=== PATIENT | male | born 1955 | race Caucasian/White ===

== ENCOUNTER 2024-11-04 05:17 | Emergency (ER) | payer OTHER, SELFPAY ==
[2024-11-04 05:19] VITALS: BP 128/89
--- NOTE | 2024-11-04 07:07 | ED.GENMED ---
History of Present Illness
General
Chief Complaint: Back Pain
Source: patient
Exam Limitations: none
Time Seen by Provider: 11/04/24 06:58
History of Present Illness
History of Present Illness:
69yoM with a history of hypertension, hyperlipidemia, and obesity presenting with his for evaluation of back pain. Patient was doing some bathroom repairs in his home 4 days ago and was doing heavy lifting. He started to experience pain in
his left lower back the following morning. He described pain that radiates down into his buttock and down the back of his left leg. Pain is worse with weight bearing. He has been taking Tylenol without relief. He denies any fevers, abdominal
pain, paresthesias, bowel/bladder issues, or incontinence. No prior history of malignancy or back surgeries.
Phy Exam
General Physical Exam
General Presentation: well appearing and no apparent distress
General Skin: warm and dry
General Habitus: normal
General Mental: alert
ENT Exam
ENT Exam: normocephalic
Cardiovascular Exam
Cardiovascular Exam: normal peripheral pulses (2+ PT pulses bilaterally)
Pulmonary Exam
Pulmonary Exam: no respiratory distress
Neurological Exam
Neurological Exam: alert and other (5/5 strength in bilateral lower extremities and sensation intact)
Sukumar Coma Scale
Eye Opening: Spontaneous
Verbal Response: Oriented
Motor Response: Obeys Commands
GCS Total Score: 15
Musculoskeletal Exam
Musculoskeletal Exam: other (No tenderness to palpation of lumbar/buttock region. Pain elicited with movement of leg. Mild tenderness in L calf without skin changes or pitting edema. )
Skin Exam
Skin Exam: normal color and warm/dry
Psychiatric Exam
Psychiatric Exam: normal mood/affect
Course
Orders/Labs/Results
Orders:
Orders
11/04/24 07:07
Ketorolac [Toradol] 30 mg IM NOW STA
CR Lumbar Spine Comp Min 4 Vw* Urgent
Comment:
Reason For Exam: low back pain
Venous Doppler Lwr Ext Left [US Periph Venous LOWER Ext LT] Urgent
Comment:
Reason For Exam: L calf pain
Vital Signs
Initial and Last Documented VS:
Initial Vital Signs
Temp Pulse Resp BP Pulse Ox
98.2 F 84 16 128/89 98
11/04/24 05:19 11/04/24 05:19 11/04/24 05:19 11/04/24 05:19 11/04/24 05:19
Last Documented Vital Signs
Temp Pulse Resp BP Pulse Ox
98.2 F 94 18 136/88 97
11/04/24 05:19 11/04/24 08:37 11/04/24 08:37 11/04/24 08:37 11/04/24 08:37
MDM/Problems Addressed
Differential Diagnosis Includes:
69yoM here with L back pain radiating down to buttock/back of L leg x 3 days. Started after heavy lifting. No red flags in history including no saddle anesthesia, incontinence, fevers. VSS. Lower extremities are neurovascularly intact. Differential
diagnosis includes: sciatica, lumbar radiculopathy, less likely DVT
Initial ED plan: Check lumbar spine x-rays and venous duplex. IM Toradol for pain.
*Pulse Oximetry
SaO2: 98
Oxygen Mode of Delivery: Room air
Patient hypoxic: no (98%)
*Critical Care Note
Total Time (30-74mins, 75-104mins- exclusive of procedures): Not Applicable
Update Note
Update Note:
Venous duplex negative for DVT. X-rays show degenerative changes without fracture per my interpretation. Presentation consistent with sciatica. He was started on a course of prednisone and prescription also provided for gabapentin QHS. Supportive
care reviewed. He has an appt with his PCP scheduled in 5 days so will have close f/u. Patient in agreement with plan and was discharged in stable condition.
ED Attending Note
-
Portions of this chart may have been created with voice recognition software.� Occasional wrong word or��sound alike� substitutions may have occurred due to the inherent limitations of voice recognition software.
Discharge Plan
Departure
Patient Disposition: Home (Routine Discharge)
Date of Disposition: 11/04/24
Time of Disposition: 09:18
Patient with high blood pressure during this ER visit?: No
Discharge Problem:
Sciatica of left side
Instructions: Sciatica (DC)
Prescriptions:
New
prednisone 50 mg tablet
50 mg PO DAILY Qty: 5 0RF
gabapentin 100 mg capsule
100 mg PO HS Qty: 7 0RF
No Action
lisinopril-hydrochlorothiazide 20-12.5 mg Tablet
1 tab PO DAILY
amlodipine 5 mg Tablet
5 mg PO DAILY
tamsulosin 0.4 mg Capsule
0.4 mg PO DAILY
aspirin 81 mg Tablet
81 mg PO DAILY
finasteride 5 mg Tablet
5 mg PO DAILY
rosuvastatin 20 mg Tablet
20 mg PO DAILY
Referrals:
Bernard Morse MD [Family Provider]
Activity Restrictions/Additional Instructions:
Take prednisone and gabapentin as prescribed. Use lidocaine patches daily (12 hours on, 12 hours off). You may continue to use Tylenol as needed.
Please follow-up with your family doctor on Tuesday as previously scheduled. Return to the ER with any new or worsening symptoms.
Interventions
Interventions:
*Risk Screen - Suicide Last Done: 11/04/24 05:19
*General Assessment Last Done: 11/04/24 05:19
*Neglect/Abuse Screening Last Done: 11/04/24 05:19
*ED- Fall Risk Assessment Last Done: 11/04/24 08:37
*ED COVID-19 Vaccine History Last Done: 11/04/24 08:37
*Nursing Disposition Last Done: 11/04/24 10:12
ED-Musculoskeletal Assessment Last Done: 11/04/24 08:37
Discharge Date and Time
Discharge Date/Time: 11/04/24 10:13
Print Language: PERSIAN
[2024-11-04] MEDS: TORADOL 30 MG IM (08:32)
[2024-11-04 08:36] VITALS: BMI 32.5
[2024-11-04 08:37] VITALS: BP 136/88
== END 2024-11-04 10:13 | disposition home or self-care (01) ==
LOC: EMR 05:17
PROVIDERS: EMERGENCY PHYSICIAN Emergency Medicine; FAMILY PHYSICIAN Internal Medicine
DX: M54.42 Lumbago with sciatica, left side (principal); I10 Essential (primary) hypertension; E78.5 Hyperlipidemia, unspecified
CPT/HCPCS: 96372; 99284; 72110; 93971